=== PATIENT | male | born 1955 | race Caucasian/White ===

== ENCOUNTER 2017-01-06 01:20 | Emergency (ER) | payer BC ==
--- NOTE | 2017-01-06 05:15 | ER ---
ADMIT: 01/06/2017 RM/LOC: ER [facility] MR#: [id number] [place], [place] [id number] LOUISA RODRIGUEZ [address] [place] [address] Emergency Room Report SEX: M AGE: 61 : 1955 DATE: 01/06/2017 The patient is a 61-year-old male, complaining of substernal chest tightness that awoke him. Does have history of panic attacks. Negative Lexiscan in 2007, has not followed up with [facility] since. Cardiac risk factors include gender, hypertension. Exam remarkable for nontoxic, afebrile, anxious male, responded well to Xanax, Protonix, and GI cocktail. EKG showed sinus bradycardia with left anterior hemiblock. Chest x-ray, negative. WBC 14.1. Lactic 2.0. CRP 0.53. Lipase 224. Troponin less than 0.015. BNP 44. D-dimer 0.31. Advised continuing anxiolytic. Recommended repeat exercise stress test due to risk factors, otherwise follow up Dr. Merino as scheduled. Jesus Bradford MD/ jackie JOB #: [id number] CC: Jesus Bradford MD, Attending Physician Koffi Merino MD, Family Physician Koffi Merino MD
== END 2017-01-06 17:00 | disposition home or self-care (01) ==
LOC: ER 01:20
DX: R07.89 Other chest pain (principal); F41.0 Panic disorder [episodic paroxysmal anxiety]; I10 Essential (primary) hypertension; Z88.8 Allergy status to other drugs, medicaments and biological substances